=== PATIENT | female | born 1960 | race Caucasian/White ===

== ENCOUNTER 2022-09-03 07:23 | Day surgery (SDC) | payer MEDICARE ==
[2022-08-30 14:24] VITALS: BMI 30.9
[2022-09-03] MEDS ORDERED: Rocuronium Bromide 10 MG/ML (10ML VIAL) ONE (09:33)
[2022-09-03] MEDS ORDERED: Fentanyl 100 MCG/2 ML VIAL ONE ×2 (09:33→11:48)
[2022-09-03] MEDS ORDERED: PROPOFOL 20 ML ONE ×2 (09:33→11:48)
[2022-09-03] MEDS ORDERED: Midazolam HCl 2 mg/2 ml Vial ONE (09:33)
[2022-09-03] MEDS ORDERED: Dexamethasone 20 MG/5 ML VIAL ONE (09:33)
[2022-09-03] MEDS ORDERED: Lidocaine 1% PF 5 ML VIAL ONE (09:33)
[2022-09-03] MEDS ORDERED: Ondansetron PF 4 MG/2 ML Vial ONE (09:33)
[2022-09-03] MEDS ORDERED: oFLOXacin 0.3% Opth 5 ML BOT ONE (09:36)
[2022-09-03] MEDS ORDERED: EPINEPHrine 1 MG/ML AMP ONE (09:36)
[2022-09-03] MEDS ORDERED: Mupirocin 2% Ointment 22 GM Tube ONE (09:36)
[2022-09-03] MEDS ORDERED: CEFAZOLIN 1 GM VIAL ONE ×2 (09:40→09:41)
[2022-09-03] MEDS ORDERED: ePHEDrine Sulfate 50 MG/10 ML VIAL ONE (10:00)
[2022-09-03] MEDS ORDERED: Lidocaine 1% w/Epinephrine 1:100K 20 ML VIAL ONE (10:25)
[2022-09-03] MEDS ORDERED: PHENYLEPHRINE-NS 100 MCG/ML 10 ML SYRINGE ONE (11:39)
== END 2022-09-03 13:30 | disposition home or self-care (01) ==
LOC: CSHSDC 07:23
PROVIDERS: ATTEND Otolaryngology Otolaryngic Allergy
PROC: 09Q70ZZ Repair Right Tympanic Membrane, Open Approach (ICD-10-PCS; principal; 2022-09-03)
DX: H72.91 Unspecified perforation of tympanic membrane, right ear (principal); H90.2 Conductive hearing loss, unspecified; G43.909 Migraine, unspecified, not intractable, without status migrainosus; J45.909 Unspecified asthma, uncomplicated; K21.9 Gastro-esophageal reflux disease without esophagitis; E78.5 Hyperlipidemia, unspecified; E11.9 Type 2 diabetes mellitus without complications; F17.210 Nicotine dependence, cigarettes, uncomplicated; Z88.8 Allergy status to other drugs, medicaments and biological substances; Z79.899 Other long term (current) drug therapy; Z79.84 Long term (current) use of oral hypoglycemic drugs
CPT/HCPCS: J0171; J0690; J1100; J2250; J2405; J2704; J3010